=== PATIENT | female | born 1990 | race Caucasian/White ===

== ENCOUNTER 2016-11-05 05:29 | Emergency (ER) | payer MEDICAID ==
[2016-11-05 08:08] LABS: Bilirubin,Urine NEG (Negative); Blood,Urine LG (Negative); Ketones,Urine NEG (Negative); Leukocyte Esterase,Urine NEG (Negative); Nitrite,Urine NEG (Negative); Protein,Urine <15 mg/dL mg/dL (Negative); Urobilinogen,Urine < 2.0 mg/dL (<2.0)
[2016-11-05 08:12] LABS: Mucus,Urine FEW /HPF
[2016-11-05 08:13] LABS: WBC,Urine < 1.0 /HPF (0.0-6.0)
--- NOTE | 2016-11-05 09:44 | Emergency Department Report ---
HPI - General Chief Complaint: Abdominal Pain Time Seen by Provider: 11/05/16 08:50 - HPI HPI: Chief complaint: Lower abdominal intermittent pain HPI: Patient states that the end of September she skipped one of her periods, had a positive test that was followed by a week of bleeding and then a negative test that she assumed was a miscarriage. Patient never followed up. Patient does not know her blood type. Review of her old chart shows that she is B+. Patient denies previous history of ovarian cysts, vaginal discharge or current vaginal bleeding. Patient complains of generalized aches and tingling all over and feeling weak on with some numbness to her hands for the last several days worsening today at work. Patient denies fever, nausea, vomiting, diarrhea, cough, cold, chest pain, vaginal discharge. Mode of arrival: [private car] Source: [Patient] Began: See above Duration: See above Context: See above Quality: Body aches Severity: 8 out of 10 Improved with: Nothing Worsened with: Nothing Associated signs and symptoms: See above ED Past Medical Hx - Past Medical History Previous Medical History?: Yes Hx Asthma: Yes (2 years ago) - Surgical History Past Surgical History?: No - Social History Smoking Status: Never Smoker - Medications Home Medications: Home Medications Medication Instructions Recorded Confirmed Last Taken Type ALBUTEROL Inhaler [ProAir HFA 2 puff IH QID PRN #1 inhalation 11/05/16 Unknown Rx Inhaler] Albuterol Sulfate [Ventolin HFA] 11/05/16 Unknown History Albuterol Sulfate [Ventolin HFA] 1 11/05/16 Unknown History ED Review of Systems ROS: Stated complaint: BILAT HANDS NUMB/BODY ACHE Other details as noted in HPI ROS Constitutional: No fever ENT: No uri symptoms Cardiovascular: No chest pain Respiratory: No sob or cough GI: No nausea vomiting or diarrhea : No dysuria frequency or urgency, Skin: No rash Neuro: No focal weakness or numbness Psych: No depression Baldomero/lymph: No edema Physical Exam - Physical Exam Vital Signs: Vital Signs 11/05/16 05:34 Temperature 98.0 F Pulse Rate 72 Respiratory 20 Rate Blood Pressure 119/77 O2 Sat by Pulse 99 Oximetry Physical Exam: GENERAL: The patient is well-developed well-nourished. HEENT: Normocephalic. Atraumatic. Extraocular motions are intact. Patient has moist mucous membranes. NECK: Supple. No meningitic signs are noted. There is no adenopathy noted. CHEST/LUNGS: Clear to auscultation. There is no respiratory distress noted. HEART/CARDIOVASCULAR: Regular. There is no tachycardia. There is no gallop rub or murmur. ABDOMEN: Abdomen is soft, nontender. Patient has normal bowel sounds. There is no abdominal distention. SKIN: There is no rash. There is no edema. There is no diaphoresis. NEURO: The patient is awake, alert, and oriented. The patient is cooperative. The patient has no focal neurologic deficits. The patient has normal speech. MUSCULOSKELETAL: There is no tenderness or deformity. There is no limitation range of motion. There is no evidence of acute injury. Patient refused pelvic exam because she was on her period. ED Course Vital Signs 11/05/16 05:34 Temperature 98.0 F Pulse Rate 72 Respiratory 20 Rate Blood Pressure 119/77 O2 Sat by Pulse 99 Oximetry ED Medical Decision Making - Lab Data Result diagrams: 11/05/16 10:00 11/05/16 10:00 Laboratory Tests 11/05/16 07:41 Ur Leukocyte Esterase Neg Urine WBC (Auto) < 1.0 Urine RBC (Auto) 4.0 U Epithel Cells (Auto) 1.0 Urine Mucus Few Urine HCG, Qual Negative Critical care attestation.: If time is entered above; I have spent that time in minutes in the direct care of this critically ill patient, excluding procedure time. ED Disposition Clinical Impression: Pelvic pain, Paresthesias Disposition: DISCHARGED TO HOME OR SELFCARE Is pt being admited?: No Does the pt Need Aspirin: No Condition: Stable Instructions: Abdominal Pain (ED), Paresthesia (ED) Prescriptions: ALBUTEROL Inhaler [ProAir HFA Inhaler] 2 puff IH QID PRN #1 inhalation PRN Reason: Shortness Of Breath Referrals: [facility] [Provider Group] - 3-5 Days SUPRIYA LALA MD [Staff Physician] - 3-5 Days (Dr. Lala is a primary care doctor) Time of Disposition: 10:56
--- NOTE | 2016-11-05 09:45 | Emergency Department Report ---
HPI - General Chief Complaint: Abdominal Pain Time Seen by Provider: 11/05/16 08:50 ED Past Medical Hx - Past Medical History Previous Medical History?: Yes Hx Hypertension: No Hx Congestive Heart Failure: No Hx Diabetes: No Hx Deep Vein Thrombosis: No Hx Renal Disease: No Hx Sickle Cell Disease: No Hx Seizures: No Hx Asthma: Yes (2 years ago) Hx COPD: No Hx HIV: No - Surgical History Past Surgical History?: No - Social History Smoking Status: Never Smoker - Medications Home Medications: Home Medications Medication Instructions Recorded Confirmed Last Taken Type No Known Home Medications [No 03/21/14 03/21/14 Unknown History Reported Home Medications] ED Review of Systems ROS: Stated complaint: BILAT HANDS NUMB/BODY ACHE Other details as noted in HPI Physical Exam - Physical Exam Vital Signs: Vital Signs 11/05/16 05:34 Temperature 98.0 F Pulse Rate 72 Respiratory 20 Rate Blood Pressure 119/77 O2 Sat by Pulse 99 Oximetry ED Course Vital Signs 11/05/16 05:34 Temperature 98.0 F Pulse Rate 72 Respiratory 20 Rate Blood Pressure 119/77 O2 Sat by Pulse 99 Oximetry Critical care attestation.: If time is entered above; I have spent that time in minutes in the direct care of this critically ill patient, excluding procedure time. ED Disposition Condition: Stable Instructions: Abdominal Pain (ED) Referrals: [facility], [Primary Care Provider] - 3-5 Days
[2016-11-05 10:17] LABS: Basophils % (Auto) 0.9 % (0.0-1.8); Eosinophils % (Auto) 6.2 % (0.0-4.3); Hematocrit 41.3 % (30.3-42.9); Mean Corpuscular HGB Conc 34 % (30-34); Mean Corpuscular Hemoglobin 29 pg (28-32); Mean Corpuscular Volume 87 fl (79-97); Platelet Count 356 K/mm3 (140-440); Red Blood Count 4.78 M/mm3 (3.65-5.03); Red Cell Distribution Width 13.7 % (13.2-15.2)
[2016-11-05 10:38] LABS: Anion Gap 19 mmol/L; Blood Urea Nitrogen 16 mg/dL (7-17); Calcium 9.5 mg/dL (8.4-10.2); Carbon Dioxide 24 mmol/L (22-30); Chloride 102.2 mmol/L (98-107); Glucose 79 mg/dL (65-100); Potassium 4.2 mmol/L (3.6-5.0); Sodium 141 mmol/L (137-145)
[2016-11-05 11:12] VITALS: BP 118/75
== END 2016-11-05 11:18 | disposition home or self-care (01) ==
LOC: ED 05:29
DX: R10.2 Pelvic and perineal pain (principal); R20.9 Unspecified disturbances of skin sensation; J45.909 Unspecified asthma, uncomplicated
CPT/HCPCS: 36415; 80048; 81001; 81025; 85025; 99283

== ENCOUNTER 2018-04-23 06:18 | Emergency (ER) | payer MEDICAID ==
[2018-04-23 06:41] VITALS: BP 119/75
[2018-04-23 08:07] LABS: Basophils # (Auto) 0.1 K/mm3 (0.0-0.1); Eosinophils # (Auto) 0.2 K/mm3 (0.0-0.4); Eosinophils % (Auto) 1.8 % (0.0-4.3); Hematocrit 41.8 % (30.3-42.9); Hemoglobin 14.4 gm/dl (10.1-14.3); Lymphocytes # (Auto) 2.6 K/mm3 (1.2-5.4); Lymphocytes % (Auto) 24.8 % (13.4-35.0); Mean Corpuscular HGB Conc 34 % (30-34); Mean Corpuscular Hemoglobin 30 pg (28-32); Mean Corpuscular Volume 86 fl (79-97); Monocytes # (Auto) 0.8 K/mm3 (0.0-0.8); Monocytes % (Auto) 7.9 % (0.0-7.3); Platelet Count 301 K/mm3 (140-440); Red Blood Count 4.86 M/mm3 (3.65-5.03); Red Cell Distribution Width 14.1 % (13.2-15.2)
[2018-04-23 08:31] LABS: Bacteria,Urine 1+ /HPF (Negative); Bilirubin,Urine NEG (Negative); Blood,Urine NEG (Negative); Color,Urine Yellow (Yellow); Mucus,Urine 2+ /HPF; Urobilinogen,Urine < 2.0 mg/dL (<2.0)
[2018-04-23 08:36] LABS: HCG Qualitative,Urine Negative (Negative)
[2018-04-23 08:50] LABS: Alanine Aminotransferase 38 units/L (7-56); Albumin 4.4 g/dL (3.9-5); BUN/Creatinine Ratio 20; Blood Urea Nitrogen 12 mg/dL (7-17); Calcium 9.4 mg/dL (8.4-10.2); Hemolysis Index 1
[2018-04-23] MEDS ORDERED: TORADOL IV ONE (11:01)
[2018-04-23] MEDS ORDERED: NORCO 5/325 PO ONE (11:21)
--- NOTE | 2018-04-23 11:34 | Emergency Department Report ---
HPI - General Chief Complaint: Abdominal Pain Time Seen by Provider: 04/23/18 10:39 - HPI HPI: The patient is a 27-year-old female With a history of recurrent ovarian cysts, whom presents for evaluation of abdominal pain. The patient reports lower abdominal pain for the past 2 weeks, currently a/10 severity, crampy in quality , relieved with lying down and rests. She states that her symptoms are consistent with previous episodes of ovarian cysts. The patient denies fever, chills, night sweats, diarrhea, blood in the stool, dark tarry stool, dysuria, hematuria, flank pain, genital discharge, vaginal bleeding, inability to pass flatus. ED Past Medical Hx - Past Medical History Hx Hypertension: No Hx Congestive Heart Failure: No Hx Diabetes: No Hx Deep Vein Thrombosis: No Hx Renal Disease: No Hx Sickle Cell Disease: No Hx Seizures: No Hx Asthma: Yes (2 years ago) Hx COPD: No Hx HIV: No - Surgical History Additional Surgical History: left knee - Social History Smoking Status: Current Some Day Smoker Substance Use Type: Alcohol - Medications Home Medications: Home Medications Medication Instructions Recorded Confirmed Last Taken Type Albuterol Sulfate [Ventolin HFA] 11/05/16 Unknown History Albuterol Sulfate [Ventolin HFA] 1 11/05/16 Unknown History ALBUTEROL Inhaler [ProAir HFA 2 puff IH QID PRN #1 inh 12/06/16 Unknown Rx Inhaler] predniSONE [Deltasone] 40 mg PO QDAY #10 tablet 12/06/16 Unknown Rx ALBUTEROL Inhaler [ProAir HFA 2 puff IH QID PRN #1 inhalation 04/23/18 Unknown Rx Inhaler] Ibuprofen [Motrin] 800 mg PO Q8HR PRN #15 tablet 04/23/18 Unknown Rx traMADol [Ultram 50 MG tab] 50 mg PO Q6HR PRN #15 tablet 04/23/18 Unknown Rx ED Review of Systems ROS: Stated complaint: OVARIAN CYSTS Other details as noted in HPI Constitutional: denies: fever ENT: denies: throat or neck pain Respiratory: denies: cough, shortness of breath Cardiovascular: denies: chest pain Endocrine: denies unexplained weight loss or gain Gastrointestinal: reports: abdominal pain, nausea Genitourinary: denies: dysuria Musculoskeletal: denies: leg swelling Skin: denies: rash Neurological: denies: headache Hematological/Lymphatic: denies: easy bleeding or easy bruising Psych: denies sadness or hopelessness Physical Exam - Physical Exam Vital Signs: Vital Signs 04/23/18 04/23/18 06:37 10:31 Temperature 98.5 F Pulse Rate 85 Respiratory 16 18 Rate Blood Pressure 119/75 O2 Sat by Pulse 97 98 Oximetry Physical Exam: General: well-nourished, well-developed, no acute distress Head: Normocephalic, atraumatic Eyes: normal sclera ENT: Mucous membranes are pink and moist Neck: trachea midline, neck supple, No neck stiffness, no cervical adenopathy Respiratory: Breath sounds equal bilaterally, no wheezing, rales, or rhonchi Cardio: S1 and S2 present, no murmurs, rubs, gallops, capillary refill is brisk Abdomen: Normoactive bowel sounds, soft abdomen, suprapubic and periumbilical tenderness to palpation present, no rigidity, no guarding or rebound tenderness Chest WALL/Back: No tenderness to palpation of the chest wall, no CVA tenderness with percussion Musc: No pitting edema Skin: No rash Neuro: no facial drooping, normal speech Psych: Normal affect ED Course Vital Signs 04/23/18 04/23/18 06:37 10:31 Temperature 98.5 F Pulse Rate 85 Respiratory 16 18 Rate Blood Pressure 119/75 O2 Sat by Pulse 97 98 Oximetry ED Medical Decision Making - Lab Data Result diagrams: 04/23/18 06:56 04/23/18 06:56 - Medical Decision Making The patient was seen and examined by myself. The patient is placed on a monitoring coordinator and continuous pulse ox. On initial evaluation, the patient was found to be in no distress. Evaluation orders are placed. The patient is given IV Toradol for her pain. Lab results were non-concerning including WBC, hemoglobin, hematocrit, electrolytes, renal function,neg preg test, and urinalysis. The patient was reevaluated and reported that their symptoms were markedly improved. The patient is stable for discharge with outpatient follow- up. The patient is given follow-up and return instructions. The patient expressed understanding and agreed with the plan. The patient is discharged in stable condition. Critical care attestation.: If time is entered above; I have spent that time in minutes in the direct care of this critically ill patient, excluding procedure time. ED Disposition Clinical Impression: Abdominal pain, acute, periumbilical Disposition: DC- TO HOME OR SELFCARE Is pt being admited?: No Does the pt Need Aspirin: No Condition: Stable Instructions: Abdominal Pain (ED), Ovarian Cyst (ED) Referrals: LANEY WRIGHT MD [Staff Physician] - 3-[address] [facility] [Provider Group] - 3-5 Days Time of Disposition: 11:22
== END 2018-04-23 12:06 | disposition home or self-care (01) ==
LOC: ED 06:18
DX: R10.33 Periumbilical pain (principal); J45.909 Unspecified asthma, uncomplicated; F17.200 Nicotine dependence, unspecified, uncomplicated
CPT/HCPCS: 36415; 80053; 81001; 81025; 85025; 96374; 99284; J1885